=== PATIENT | female | born 1960 | race Caucasian/White ===

== ENCOUNTER 2019-12-09 10:08 | Day surgery (SDC) | payer MEDICAID ==
[2019-12-03 13:30] VITALS: BMI 38.2
[~2019-12-09 10:08] MED LIST: ACETAMINOPHEN TAB 500 MG TAB PO ONE; CLINDAMYCIN 900 MG in DEXTROSE 5% IN WATER 50 ML IVPB ONE; DEXAMETHASONE SOD PHOSPHATE 10 MG/ML 1 ML VIAL IV ONE; GABAPENTIN 300 MG CAP PO ONE; HYDROmorphone 0.5 MG/0.5 ML SYRINGE IVP PRN; MELOXICAM 7.5 MG TAB PO ONE; MIDAZOLAM 2 MG/2 ML VIAL IV PRN; ONDANSETRON 4 MG/2 ML VIAL IVP ONE; ROPIVACAINE 246.25 MG, EPINEPHrine 0.5 MG, KETOROLAC 30 MG, cloNIDine HCL/PF 80 MCG, WA... MISCELLANE ONE; TRANEXAMIC ACID 1,000 MG in SODIUM CHLORIDE 0.9% 100 ML IVPB ONE
[2019-12-09] MEDS ORDERED: VANCOMYCIN 1,000 MG in SODIUM CHLORIDE 0.9% 250 ML IVPB STA (10:49)
[2019-12-09] MEDS: LACTATED RINGERS 1,000 ML IV SCH ×3 (11:08→23:12)
[2019-12-09] MEDS ORDERED: SCOPOLAMINE 1.5MG/72HR PATCH TRANSDERM ONE (11:09)
[2019-12-09] MEDS ORDERED: LIDOCAINE 1% (10MG/ML) FOR IV START INTRADERMA ONE (11:09)
[2019-12-09] MEDS ORDERED: MIDAZOLAM 2 MG/2 ML VIAL IVP ONE (11:18)
[2019-12-09] MEDS ORDERED: fentaNYL (PF) 50 MCG/ML 2 ML AMP IVP ONE (11:18)
[2019-12-09] MEDS ORDERED: PROPOFOL 10 MG/ML 20 ML VIAL IV ONE (11:50)
[2019-12-09] MEDS ORDERED: MIDAZOLAM 2 MG/2 ML VIAL ONE (11:50)
[2019-12-09] MEDS ORDERED: SODIUM CHLORIDE 0.9% 100 ML BAG ONE (11:50)
[2019-12-09] MEDS ORDERED: TRANEXAMIC ACID 1,000 MG/10 ML VIAL ONE (11:50)
[2019-12-09] MEDS ORDERED: fentaNYL (PF) 50 MCG/ML 2 ML AMP ONE (11:50)
[2019-12-09] MEDS ORDERED: CLINDAMYCIN 1,800 MG in SODIUM CHLORIDE 0.9% IRRIGATIO 3,000 ML IRRIGATION ONE (12:29)
[2019-12-09] MEDS ORDERED: ROPIVACAINE 0.2%-NS ON-Q PUMP 1,090 MG, EMPTY PAIN BALL 1 EACH MISCELLANE PRN (13:51)
--- NOTE | 2019-12-09 13:57 | P.ANPRN ---
Procedure Note - Anesthesia - Nerve Block Performed Right Adductor Canal Infusion Time Out Performed: Yes (1117) Date of Procedure: 12/09/19 Procedure Start Time: 11:18 Procedure Stop Time: 11:23 Location of Patient: PreOp Indication: Acute Post-Operative Pain, Requested by Surgeon Specifically requested for management of pain by DrMillicent: Jagjit Ramos Sedation Type: Sedate with meaningful contact maintained Preparation: Sterile Prep Position: Supine Catheter: None Needle Types: Pajunk Needle Gauge: 21 Ultrasound used to visualize needle placement: Yes Ultrasound used to observe medication spread: Yes Injectate: 0.5% Ropivacaine (see comment for volume) (20CC) Blood Aspirated: No Pain Paresthesia on Injection Noted: No Resistance on Injection: Normal Image Stored and Saved: Yes Events: Uneventful and Well Tolerated
[2019-12-09] MEDS ORDERED: bisacodyL 10 MG SUPP RECTAL PRN (14:08)
[2019-12-09] MEDS ORDERED: diazePAM 5 MG TAB PO PRN (14:08)
[2019-12-09] MEDS ORDERED: traMADol 50 MG TAB PO PRN (14:08)
[2019-12-09] MEDS ORDERED: MAGNESIUM HYDROXIDE 2,400 MG/10 ML CUP PO PRN (14:08)
[2019-12-09] MEDS ORDERED: HYDROmorphone 0.5 MG/0.5 ML SYRINGE IVP PRN ×2 (14:08)
[2019-12-09] MEDS ORDERED: ACETAMINOPHEN TAB 325 MG TAB PO PRN (14:08)
[2019-12-09] MEDS ORDERED: TEMAZEPAM 15 MG CAP PO PRN (14:08)
[2019-12-09] MEDS ORDERED: ONDANSETRON 4 MG/2 ML VIAL IVP PRN (14:08)
[2019-12-09] MEDS ORDERED: HYDROmorphone 1 MG/ML 1 ML SYRINGE IVP PRN (14:08)
[2019-12-09] MEDS ORDERED: NALOXONE 0.4 MG/ML 1 ML VIAL IV PRN (14:08)
[2019-12-09] MEDS ORDERED: NA PHOS,M-B/NA PHOS,DI-BA 133 ML ENEMA RECTAL PRN (14:08)
[2019-12-09] MEDS ORDERED: hydrOXYzine pamoate 25 MG CAP PO PRN (14:08)
[2019-12-09] MEDS ORDERED: HYDROcodone/APAP 7.5-325MG 1 EACH TAB PO PRN (14:13)
[2019-12-09] MEDS ORDERED: diphenhydrAMINE 25 MG CAP PO PRN (14:13)
--- NOTE | 2019-12-09 14:23 | XR ---
EXAMINATION TYPE: XR knee limited RT DATE OF EXAM: 12/09/2019 CLINICAL HISTORY: Postoperative evaluation Two views of the right knee are submitted. Identified are changes of total knee arthroplasty with femoral and tibial components appearing well seated. Postsurgical soft tissue changes are noted. Alignment is anatomic.
[2019-12-09] MEDS: ASPIRIN 81 MG PO SCH (20:18)
--- NOTE | 2019-12-09 20:46 | OP ---
OPERATIVE REPORT DATE OF PROCEDURE: 12/09/2019 SURGEON: Jagjit Ramos MD. MANPOWER DEVELOPMENT ADVISOR: True WINTER. PREOPERATIVE DIAGNOSIS: Right knee osteoarthrosis. POSTOPERATIVE DIAGNOSIS: Right knee osteoarthrosis. OPERATION: Right total knee arthroplasty. ANESTHESIA: Spinal with sedation. ESTIMATED BLOOD LOSS: 100 mL. TOURNIQUET TIME: Tourniquet time was 49 minutes at 250 mmHg. COMPLICATIONS: None apparent. DRAINS: None. DISPOSITION: Post-Anesthesia Care Unit. INDICATIONS: Angie is a 59-year-old female with longstanding history of right knee pain. History and physical examination are consistent with advanced right knee osteoarthrosis. She has been through significant nonoperative management up to this point. Further treatment options were discussed, and she decided to go forward with right total knee arthroplasty. The risks of procedure were discussed with her in detail. These risks include but are not limited to risk of infection, nerve damage, bleeding, pain, and a small risk of deep vein thrombosis which could lead to fatal pulmonary embolism. There is also a risk of loosening of the implant which could require revision operation. The patient understands these risks. All of her questions were answered to her satisfaction. Appropriate informed consent was obtained. DESCRIPTION OF THE PROCEDURE: The patient was identified in the preoperative holding area. Surgical site was marked by both the patient and myself. She was given 1 gram of vancomycin IV for prophylactic purposes. She was then transferred to the operative suite. She was placed supine on the operating room table. A spinal anesthetic was then administered and dosed per the anesthesia department without apparent complication. Examination under anesthesia was then performed. She was 2 to 3 degrees shy of full extension and she had 95 degrees of flexion, and the medial collateral ligament, lateral collateral ligament and posterior cruciate ligaments were stable. Tourniquet was then placed high on the right upper thigh, well padded in preparation for surgery. The patient's right lower extremity was then prepped and draped in the usual sterile fashion. A standard surgical pause was then undertaken to ensure that we were operating on the correct site and that appropriate preoperative antibiotics had been given. All staff in the room were in agreement and we proceeded. The outlines of the patella were marked with a surgical pen. A planned 12 cm vertical incision centered over the patella was marked with a surgical pen. The leg was then exsanguinated with an Esmarch dressing. The knee was then flexed and the tourniquet was inflated to 250 mmHg. The total tourniquet time for the procedure was 49 minutes. Incision was then made with a 10-blade scalpel. Dissection was carried down sharply to the overlying fascia. Great care was taken to minimize the skin flaps. The knee was then exposed using a standard medial parapatellar approach. A small cuff of quadriceps tendon was then left for suturing. She was in quite a bit of varus preoperatively. A standard medial release was then made. Superficial medial collateral ligament was dissected off of the bone and around to the posterior aspect of the proximal tibia. The medial meniscus was then excised as well. The lateral meniscus was also released anteriorly. The leg was then externally rotated. The patella was everted. The knee was flexed. The retractors were then placed to protect the collateral ligaments. I then proceeded to remove the infrapatellar fat pad. This was excised sharply tangentially with the fibers of the patellar tendon. I then proceeded to remove the peripheral osteophytes. This was done with a rongeur. I then proceeded with the distal femoral resection. She did have near-full extension. A planned 9 mm resection was then done. The femoral canal was then entered in the midline of the femur approximately 10 mm anterior to the origin of the posterior cruciate ligament. The sj was then advanced down the center of the femur and placed intramedullary. Based on the preoperative radiographs, the angle between the anatomic and mechanical axis of the femur was approximately 4 to 5 degrees. The valgus angle of the distal femoral cutting guide was then set at 4 degrees for the right knee. The distal femoral cutting guide was then advanced over the intramedullary sj. This was seated firmly against the femur. I then, as mentioned, planned to take 9 mm off the distal femur. The cutting block was then secured onto the femur with pins. The jig was then removed and the distal femoral cut was made through the slot of the block. The pins were then removed and the distal femoral cutting block was removed. The accuracy of the distal femoral cuts was checked with 2 flat bars. I then proceeded with femoral sizing. The posterior referencing sizing guide was held firmly against the resected distal surface of the femur. The posterior condyles were resting on the posterior plane of the guide. The sizing stylus was then placed onto the anterior femur. The size was measured as a size 5. I then assessed for femoral rotation. The plan was for 3 degrees of external rotation. Three degrees of external rotation was placed onto the jig. These holes were then marked. I then confirmed the rotation by 3 separate methods. This was done using the epicondylar axis as well as Whitesides line and posterior referencing. It was deemed that the external rotation was proper. I then went forward with placing the femoral cutting block. This was placed over the previously placed pin holes. The Dusty wing was then placed onto the anterior slots to ensure that we would not notch the anterior femur with the anterior femoral cut. I then proceeded with the anterior femoral cut. This was flush with the anterior cortex of the femur. The posterior cuts were then made followed by the anterior chamfer cut, and then the posterior chamfer cut. The cutting block was then removed. Throughout the resection, the collateral ligaments were protected with retractors. I then placed a trial size 5 femur. It fit very nicely medial to lateral and fit flush with the distal end of the femur. The drill holes were then made. I then proceeded with the tibial cut. I planned for a cruciate-retaining knee. The guide was placed and set for varus, valgus and for slope. The height was set for an approximate 2 mm resection from the medial tibial plateau, which was the lower side. I was happy with the alignment and the amount of resection. The cutting block was then pinned to the proximal tibia. The alignment sj was removed and the proximal tibia was resected with a reciprocating saw. Again this was done with retractors protecting the collateral ligaments as well as the posterior cruciate ligament. I then proceeded to evaluate the flexion and extension gaps. A 10 mm block was then placed. The flexion and extension gaps were equal. I then proceeded with resection of the posterior osteophytes. She had very minimal posterior osteophytes. This was done using a curved osteotome. This resected the posterior osteophytes, and posterior capsule stripping was done off the posterior aspect of the femur at this time. The osteophytes were then removed. I then proceeded with resection of the patella. The thickness of the patella was measured using the caliper. The thickness was 22 mm. Thickness of the anticipated patellar dome was taken into account. Resection was then performed and confirmed to be equal in 4 quadrants using a caliper. Approximately 14 mm of bone remained after resection. A 29 x 8 standard patellar trial was then placed. The holes were drilled and the trial was then placed. I then proceeded with sizing the tibial plate. A size C tibial plate fit very nicely. I then placed the trial femur, the tibial tray and the patellar button. A 10 mm trial tibial insert was also placed. The components fit very nicely. She had full extension and flexion. The extension and flexion gaps were equal and stable to both varus and valgus stress. The patella tracked appropriately. The tibial tray rotation was then marked with a Bovie. This was externally rotated properly. I then proceeded with tibial preparation. I first drilled the femoral holes and removed the femoral component. The tibial tray was then set for proper external rotation as well as mediolateral placement onto the tibia. It was then pinned into place. I then proceeded with punching the keel. I then decided to proceed with cementing of all of our components. The knee was thoroughly irrigated with sterile saline solution via pulse lavage. The lateral geniculate artery was identified and cauterized. All blood was removed from the bone of the tibia, femur and patella with pulse lavage. I then proceeded with cementing. Two packs of antibiotic bone cement were prepared on the back table by the ophthalmic surgical assistant. I then proceeded with cementing of the tibia first. The cement was impacted into the keel as well as deeply seated into the bone. A second coat of cement was then placed. The tibia was then impacted into place. Excess cement was removed with Arielle's and jokers. I then proceeded with cementing of the femoral component. The femoral component was also cemented using standard technique. Excess cement was removed. A 10 mm trial insert was then placed into the knee. It was brought into full extension with a constant axial load placed until the cement had hardened. The patellar component was then cemented. This was held firmly with a compressive device until the cement had dried. When the cement had dried, the knee was taken out of extension. All excess cement was removed from around the prosthesis. I then trialed the knee with a 10 mm insert. I then continued to trial with a 12 mm insert and then a 14 mm insert. The flexion and extension gaps felt much better. The knee was stable with the 14 mm insert. It came into full extension. I decided to go forward with a 14 mm cross-linked cruciate- retaining tibial insert. Polyethylene was then placed onto the tray and locked into place. The knee was then reduced. The knee was again further irrigated with sterile saline solution with antibiotic added. The tourniquet was then deflated. The total tourniquet time for the procedure was 49 minutes at 250 mmHg. Final components were a Dulce Maria Persona size 5 titanium cruciate-retaining femoral component, a size C tibial tray, a 14 mm medial- congruent cruciate-retaining polyethylene insert, and a 29 x 8 mm patella. I then proceeded with closure. Again the knee was thoroughly irrigated. The quadriceps tendon and the medial retinaculum were reapproximated with a #2 Ethibond suture. The extensor mechanism was then closed with a running #2 Quill suture. Subcutaneous tissues were closed with 2-0 Vicryl interrupted suture. The skin was closed with a running 3-0 Quill suture. Dermabond was applied to the incision. Sterile compressive dressings were then applied. All sponge and needle counts were deemed correct prior to closure. The patient tolerated the procedure without apparent complication. She was transferred to the recovery room in stable condition. MMODL / IJN: [id number] /
[2019-12-09] MEDS ORDERED: SENNOSIDES-DOCUSATE SODIUM 1 EACH TAB PO SCH (21:00)
[2019-12-09] MEDS: HYDROcodone/APAP 7.5-325MG 1 EACH TAB PO PRN (23:12)
[2019-12-10] MEDS ORDERED: VANCOMYCIN 1,500 MG in SODIUM CHLORIDE 0.9% 250 ML IVPB ONE ×2
--- NOTE | 2019-12-10 00:44 | P.CONS ---
History of Present Illness - Reason for Consult Consult date: 12/09/19 Medical management - Chief Complaint Right total knee arthroplasty. - History of Present Illness Patient is a 59-year-old female with a known history of bladder infections, history of cystoscopy, previous history of smoking and osteoarthritis was admitted hospital for right total knee arthroplasty. Patient failed conservative therapy for pain management including anesthetics and cortisone injections.. Patient is status post surgery. Underwent right total knee replacement. Currently pain is controlled. No complaints of chest pain or shortness of breath. No nausea vomiting or abdominal pain or diarrhea. No fever no chills. No headache or dizziness or lightheadedness. Review of Systems Constitutional: Patient denies any fever or chills . No generalized weakness or weight loss. Abdomen: Patient denied nausea vomiting and diarrhea and abdominal pain. Cardiovascular: Patient denies any chest pain or short of breath no palpitations. Respiratory: patient denied any cough is from production. No shortness of breath Neurologic: Patient denied any numbness or tingling headache. Musculoskeletal: Patient denies any complaints of joint swelling or deformity. Skin: Negative Psychiatric: Negative Endocrine: No heat or cold intolerance. No recent weight gain. Genitourinary: No dysuria or hematuria. All other 14 point ROS negative except the above Past Medical History Additional Past Medical History / Comment(s): INTERSTITIAL CYSTITIS, FREQUENT BLADDER INFECTIONS, History of Any Multi-Drug Resistant Organisms: None Reported Additional Past Surgical History / Comment(s): CYSTOSCOPY Past Anesthesia/Blood Transfusion Reactions: Motion Sickness Past Psychological History: No Psychological Hx Reported Smoking Status: Never smoker Past Alcohol Use History: Occasional Additional Past Alcohol Use History / Comment(s): STARTED SMOKING AT AGE 14 1996 SMOKED 1/2 PPD Past Drug Use History: None Reported - Past Family History Mother Family Medical History: No Reported History Medications and Allergies Home Medications Medication Instructions Recorded Confirmed Type Acetaminophen [Tylenol Arthritis] 1,300 mg PO Q12H PRN 12/03/19 12/03/19 History Ibuprofen [Motrin] 800 mg PO Q12H PRN 12/03/19 12/03/19 History Pantoprazole Sodium [Protonix] 40 mg PO DAILY PRN 12/03/19 12/03/19 History Phentermine HCl [Adipex P] 15 mg PO AC-BRKFST 12/03/19 12/03/19 History Ciprofloxacin HCl [Cipro] 500 mg PO BID 12/07/19 12/07/19 History Allergies Allergy/AdvReac Type Severity Reaction Status Date / Time nickel Allergy Itching, Verified 12/09/19 10:40 ITCHING pamabrom [From Midol] Allergy VERY HOT Verified 12/09/19 10:40 FEELING" Penicillins Allergy Anaphylaxis Verified 12/09/19 10:40 Sulfa (Sulfonamide Allergy Itching Verified 12/09/19 10:40 Antibiotics) Physical Exam Vitals: Vital Signs Temp Pulse Pulse Pulse Resp BP BP 12/09/19 19:40 97.6 F 82 18 129/69 12/09/19 16:40 130/86 12/09/19 16:10 131/83 12/09/19 15:31 132/81 12/09/19 15:16 127/81 12/09/19 15:01 153/89 12/09/19 14:50 97.5 F L 67 19 142/86 12/09/19 14:31 58 L 16 140/83 12/09/19 14:16 60 16 128/79 12/09/19 14:00 57 L 16 132/78 12/09/19 13:48 98.0 F 81 16 119/75 12/09/19 11:35 78 16 132/78 12/09/19 11:06 97.7 F 84 16 142/95 Pulse Ox 12/09/19 19:40 97 12/09/19 16:40 12/09/19 16:10 12/09/19 15:31 12/09/19 15:16 12/09/19 15:01 12/09/19 14:50 100 12/09/19 14:31 99 12/09/19 14:16 98 12/09/19 14:00 98 12/09/19 13:48 94 L 12/09/19 11:35 100 12/09/19 11:06 99 Intake and Output 12/09/19 12/09/19 12/09/19 06:59 14:59 22:59 Intake Total 707 Output Total 100 Balance 607 Intake: IV 707 Output: Estimated Blood Loss 100 Other: # Voids 1 Weight 103.9 kg PHYSICAL EXAMINATION: Patient is lying in the bed comfortably, no acute distress, awake alert and oriented.. HEENT: Normocephalic. Neck is supple. Pupils reactive. Nostrils clear. Oral cavity is moist. Ears reveal no drainage. Neck reveals no JVD, carotid bruits, or thyromegaly. CHEST EXAMINATION: Trachea is central. Symmetrical expansion. Lung beltrán clear to auscultation and percussion. CARDIAC: Normal S1, S2 with no gallops. No murmurs ABDOMEN: Soft. Bowel sounds normal. No organomegaly. No abdominal bruits. Extremities: reveal no edema. No clubbing or cyanosis Neurologically awake, alert, oriented x3 with well-coordinated movements. No focal deficits noted Skin: No rash or skin lesions. Psychiatric: Coperative. Nonsuicidal Musculoskeletal: No joint swelling or deformity. Normal range of motion.Right knee surgical site is bandaged. Assessment and Plan Assessment: Right total knee replacement postoperative day 0. Osteoarthritis of bilateral knees. Frequent cystitis GERD DVT prophylaxis Morbid obesity with BMI 38.1 Plan: Patient will be continued pain management, bowel regimen and follow-up closely. Incentive spirometry. Encourage ambulation. Patient currently denied any complaints of dysuria or hematuria. We will continue to follow closely and further recommendations based on the clinical course. Thank you for your consult. Time with Patient: Greater than 30
[2019-12-10] MEDS: LACTATED RINGERS 1,000 ML IV SCH ×2 (05:29→07:07)
[2019-12-10] MEDS: HYDROcodone/APAP 7.5-325MG 1 EACH TAB PO PRN ×2 (07:06→14:09)
[2019-12-10] MEDS: ASPIRIN 81 MG PO SCH (07:07)
[2019-12-10 07:31] VITALS: BP 109/62; PULSE 73; RESP 14; TEMP 97.8
[2019-12-10 08:05] LABS: Basophils % (A) 0 %; Eosinophils % (A) 0 %; HGB 12.9 gm/dL (11.4-16.0); Lymphocytes # (A) 1.4 k/uL (1.0-4.8); Lymphocytes % (A) 9 %; MCH 29.8 pg (25.0-35.0); MCHC 32.2 g/dL (31.0-37.0); MCV 92.6 fL (80.0-100.0); Mean Platelet Volume 7.2; Monocytes # (A) 0.7 k/uL (0-1.0); Monocytes % (A) 5 %; Neutrophils # (A) 13.1 k/uL (1.3-7.7); Neutrophils % (A) 85 %; Platelet Count 249 k/uL (150-450); RBC 4.32 m/uL (3.80-5.40); RDW 12.9 % (11.5-15.5); WBC 15.5 k/uL (3.8-10.6)
[2019-12-10 08:16] LABS: African American GFR (CKD) >90 (>60 ml/min/1.73 sqM); Anion Gap 5 mmol/L; Blood Urea Nitrogen 14 mg/dL (7-17); Calcium 9.4 mg/dL (8.4-10.2); Carbon Dioxide 28 mmol/L (22-30); Chloride 104 mmol/L (98-107); Glucose 99 mg/dL (74-99); Non-African American GFR(CKD) 85 (>60 ml/min/1.73 sqM); Potassium 4.9 mmol/L (3.5-5.1); Sodium 137 mmol/L (137-145)
--- NOTE | 2019-12-10 09:44 | P.DS ---
Providers Expected date of discharge: 12/10/19 Attending physician: Jagjit Ramos Consults: 12/09/19 14:08 Consult Physician Routine Consulting Provider: Yee Choi Consult Reason/Comments: post op medical management Do you want consulting provider notified?: Yes Primary care physician: Manjit Gomez - Discharge Diagnosis(es) (1) Status post total right knee replacement Patient was admitted to the OR on 12/09/2019 to undergo a right total knee arthroplasty. She had failed conservative measures as an outpatient and desired to proceed with elective surgery after given informed consent. She underwent the above procedure which she tolerated well without complication. Postoperative hospital course has remained without complication. On day of discharge she is afebrile, vital signs stable, labs within acceptable ranges, tolerating by mouth meds and diet, voiding without difficulty, positive flatus, denies abdominal pain or calf pain, pain is controlled on oral pain medication and has no new complaints. Wound is benign, neurovascular status is intact, calf is soft and nontender, abdomen soft and nontender. Review of systems is negative for numbness, tingling, fever, chills, chest pain, shortness of breath, nausea, vomiting, dizziness, headaches, slurred speech or other. Current Visit: Yes Status: Acute Priority: Medium Procedures: Right TKA Patient Condition at Discharge: Good Plan - Discharge Summary Discharge Rx Participant: Yes New Discharge Prescriptions: New Aspirin [Adult Low Dose Aspirin EC] 81 mg PO BID #60 tablet. HYDROcodone/APAP 7.5-325MG [[place] 7.5-325] 1 - 2 each PO Q6HR PRN #56 tab PRN Reason: Pain No Action Ibuprofen [Motrin] 800 mg PO Q12H PRN PRN Reason: Pain Phentermine HCl [Adipex P] 15 mg PO AC-BRKFST Pantoprazole Sodium [Protonix] 40 mg PO DAILY PRN PRN Reason: Heartburn Acetaminophen [Tylenol Arthritis] 1,300 mg PO Q12H PRN PRN Reason: Pain Ciprofloxacin HCl [Cipro] 500 mg PO BID Discharge Medication List Acetaminophen [Tylenol Arthritis] 1,300 mg PO Q12H PRN 12/03/19 [History] Ibuprofen [Motrin] 800 mg PO Q12H PRN 12/03/19 [History] Pantoprazole Sodium [Protonix] 40 mg PO DAILY PRN 12/03/19 [History] Phentermine HCl [Adipex P] 15 mg PO AC-BRKFST 12/03/19 [History] Ciprofloxacin HCl [Cipro] 500 mg PO BID 12/07/19 [History] Aspirin [Adult Low Dose Aspirin EC] 81 mg PO BID #60 tablet. 12/10/19 [Rx] HYDROcodone/APAP 7.5-325MG [[place] 7.5-325] 1 - 2 each PO Q6HR PRN #56 tab 12/10/19 [Rx] Follow up Appointment(s)/Referral(s): [facility], [NON-STAFF] - Jagjit Ramos MD [STAFF PHYSICIAN] - 10 Days Ambulatory/Diagnostic Orders: [facility] [DME.AMB1] Location: None Selected Activity/Diet/Wound Care/Special Instructions: Keep wound clean and dry Take meds as directed Follow-up with Dr. Ramos in office Weight bear as tolerated May shower in 3 days if no bleeding Discharge Disposition: HOME WITH HOME HEALTH SERVICES
--- NOTE | 2019-12-10 14:00 | P.PN ---
Subjective Progress Note Date: 12/10/19 Principal diagnosis: Right total knee arthroplasty. 59-year-old female with a known history of bladder infections, history of cystoscopy, previous history of smoking and osteoarthritis was admitted hospital for right total knee arthroplasty. Patient failed conservative therapy for pain management including anesthetics and cortisone injections.. Patient is status post surgery. Underwent right total knee replacement. Currently pain is controlled. No complaints of chest pain or shortness of breath. No nausea vomiting or abdominal pain or diarrhea. No fever no chills. No headache or dizziness or lightheadedness. patient is S/P T TKA and is cleared for dc by orthopedic service Objective - Vital Signs Vital signs: Vital Signs Temp 97.8 F 12/10/19 07:00 Pulse 73 12/10/19 07:00 Resp 14 12/10/19 07:00 BP 109/62 12/10/19 07:00 Pulse Ox 96 12/10/19 07:00 Intake & Output 12/09/19 12/10/19 12/10/19 18:59 06:59 18:59 Intake Total 707 680 Output Total 100 Balance 607 680 Weight 103.9 kg Intake: IV 707 Intake, IV Titration 100 Amount Lactated Ringers 1,000 ml 100 @ 100 mls/hr IV .Q10H MAURI Rx#:[id number] Oral 580 Output: Estimated Blood Loss 100 Other: Voiding Method Toilet Toilet # Voids 2 1 - Exam Patient is lying in the bed comfortably, no acute distress, awake alert and oriented.. HEENT: Normocephalic. Neck is supple. Pupils reactive. Nostrils clear. Oral cavity is moist. Ears reveal no drainage. Neck reveals no JVD, carotid bruits, or thyromegaly. CHEST EXAMINATION: Trachea is central. Symmetrical expansion. Lung beltrán clear to auscultation and percussion. CARDIAC: Normal S1, S2 with no gallops. No murmurs ABDOMEN: Soft. Bowel sounds normal. No organomegaly. No abdominal bruits. Extremities: reveal no edema. No clubbing or cyanosis - Labs CBC & Chem 7: 12/10/19 07:13 12/10/19 07:13 Labs: Abnormal Lab Results - Last 24 Hours (Table) 12/10/19 Range/Units 07:13 WBC 15.5 H (3.8-10.6) k/uL Neutrophils # 13.1 H (1.3-7.7) k/uL Assessment and Plan Assessment: Right total knee replacement postoperative day 0. Osteoarthritis of bilateral knees. Frequent cystitis GERD DVT prophylaxis Morbid obesity with BMI 38.1 Okay to dc from medical standpoint
--- NOTE | 2019-12-10 14:43 | P.PN ---
Progress Note - Text Progress Note Date: 12/10/19 patient had a right adductor canal cathere inserted for post-op pain. she reports her pain to be under control between 5-7/10 which she considers ok given the fact that she is walking and ambulating. the infusion is running at 8 ml/hr she denies any numbness or weakness in her right Lower extremity she denies any symptoms of local anesthetic toxicity the catheter is inspected and no evidence of redness swelling or leak will leave catheter in place for patient to remove herself on the third or fourth day.
[2019-12-11] MEDS ORDERED: MULTIVITAMINS, THERA 1 EACH TAB PO SCH (12:00)
== END 2019-12-10 14:38 | disposition home health service (06) ==
LOC: OR 10:08 → 4SSUR 13:43 → OR 12-10 14:38
PROVIDERS: ATTEND Orthopaedic Surgery Sports Medicine
DX: M17.0 Bilateral primary osteoarthritis of knee (principal); K21.9 Gastro-esophageal reflux disease without esophagitis; E78.5 Hyperlipidemia, unspecified; N30.10 Interstitial cystitis (chronic) without hematuria; Z97.3 Presence of spectacles and contact lenses; Z88.2 Allergy status to sulfonamides; Z88.0 Allergy status to penicillin; Z91.048 Other nonmedicinal substance allergy status; Z82.49 Family history of ischemic heart disease and other diseases of the circulatory system; Z83.3 Family history of diabetes mellitus; Z87.891 Personal history of nicotine dependence; Z79.1 Long term (current) use of non-steroidal anti-inflammatories (NSAID); Z79.899 Other long term (current) drug therapy; Z87.440 Personal history of urinary (tract) infections; E66.01 Morbid (severe) obesity due to excess calories; Z68.38 Body mass index [BMI] 38.0-38.9, adult
CPT/HCPCS: 97110; 97161; 64448; 76942; 80048; 85025; 88300; 73560; 27447; C1776; C1713; J2250; J0171; J3370; J1100; J2405; J3010; J1885; J2795 ×2; J0735; J1170